=== PATIENT | male | born 1990 | race Hispanic/Latino ===

== ENCOUNTER 2022-08-23 15:49 | Emergency (ER) | payer OTHER ==
[~2022-08-23] VITALS: Ht 180.3 cm; Wt 88.5 kg
== END 2022-08-23 17:08 | disposition home or self-care (01) ==
LOC: ER 16:00
DX: Z57.5 Occupational exposure to toxic agents in other industries (principal); Y99.0 Civilian activity done for income or pay
CPT/HCPCS: 99283